=== PATIENT | male | born 1995 ===

== ENCOUNTER 2023-06-22 01:51 | Emergency (ER) | payer OTHER ==
[~2023-06-22] VITALS: Ht 170.2 cm; Wt 113.4 kg
[2023-06-22 01:57] VITALS: BP 142/76
[2023-06-22] MEDS ORDERED: Chantix1 MG PO (02:02)
[2023-06-22] MEDS ORDERED: LAMO100 PO (02:02)
[2023-06-22] MEDS ORDERED: GABA300 PO (02:02)
[2023-06-22] MEDS ORDERED: CEPH500 PO (02:56)
== END 2023-06-22 03:10 | disposition home or self-care (01) ==
LOC: ER 01:51
DX: S61.210A Laceration without foreign body of right index finger without damage to nail, initial encounter (principal); X50.9XXA Other and unspecified overexertion or strenuous movements or postures, initial encounter; Z79.899 Other long term (current) drug therapy; Z88.1 Allergy status to other antibiotic agents
CPT/HCPCS: 12001; 99282-25

== ENCOUNTER 2024-03-05 01:17 | Emergency (ER) | payer OTHER ==
[~2024-03-05] VITALS: Ht 170.2 cm; Wt 108.9 kg
[~2024-03-05 01:17] MED LIST: CEPH500 PO; Chantix1 MG PO; GABA300 PO; LAMO100 PO
[2024-03-05 01:29] VITALS: BP 127/77
[2024-03-05 02:13] LABS: CORONAVIRUS COVID-19 AG Negative (NEGATIVE); INFLUENZA A AG Negative (NEGATIVE); INFLUENZA B AG Negative (NEGATIVE)
== END 2024-03-05 04:25 | disposition left against medical advice (07) ==
LOC: ER 01:17
PROVIDERS: Emergency Medicine
DX: Z53.21 Procedure and treatment not carried out due to patient leaving prior to being seen by health care provider (principal)
CPT/HCPCS: 87428-QW